=== PATIENT | female | born 1930 | race Caucasian/White ===

== ENCOUNTER 2016-04-30 17:08 | Emergency (ER) | payer MEDICARE ==
[~2016-04-30 17:08] MED LIST: Sodium Chloride 0.9% 1,000 ML BAG ONE
[2016-04-30 18:03] LABS: #Basophils 0.1 thou/uL (0.0-0.2); #Eosinphils 0.7 thou/uL (0.0-0.7); #Lymphocytes 2.6 thou/uL (1.20-3.40); #Neutrophils 6.4 thou/uL (1.40-6.50); %Basophils 0.7 % (0.0-1.0); %Eosinophils 6.8 % (0.0-10.0); %Monocytes 8.9 % (0.0-10.0); %Neutrophils 59.6 % (42.0-75.0); Hemoglobin 13.6 g/dL (12.0-16.0); Mean Corpuscular HGB CONC 31.5 g/dL (32.0-36.0); Mean Corpuscular Hemoglobin 25.5 pg (27.0-31.0); Mean Corpuscular Volume 80.9 fl (81.0-99.0); Mean Platelet Volume 6.5 fL (7.4-10.4); Platelet Count 276 thou/uL (130-400); RBC Distribution Width 16.6 % (11.5-14.5); Red Blood Cell (RBC) Count 5.32 mill/uL (4.20-5.40); White Blood Cell (WBC) Count 10.7 thou/uL (4.8-10.8)
[2016-04-30 18:11] LABS: ALT (SGPT) 13 U/L (0-55); AST (SGOT) 14 U/L (5-34); Albumin 3.1 g/dL (3.4-4.8); Alkaline Phosphatase 115 U/L (40-150); Anion Gap 16 mmol/L (10-20); BUN (Urea Nitrogen) 38 mg/dL (9.8-20.1); Bilirubin, Total Less than 0.3 mg/dL (0.2-1.2); Calc. Creatinine Clearance 0 mL/min (70-130); Calcium 9.4 mg/dL (7.8-10.44); Carbon Dioxide 22 mmol/L (23-31); Chloride 107 mmol/L (98-107); Estimated GFR-MDRD 38; Globulin 3.2 g/dL (2.4-3.5); Glucose 109 mg/dL (83-110); Potassium 4.7 mmol/L (3.5-5.1); Protein, Total 6.3 g/dL (5.8-8.1); Sodium 140 mmol/L (136-145)
[2016-04-30 18:15] LABS: CKMB 3.1 ng/mL (0-6.6); Troponin I Less than 0.010 ng/mL (< 0.028)
== END 2016-04-30 20:15 ==
LOC: MADERS 17:08
DX: R55 Syncope and collapse (principal); F03.90 Unspecified dementia, unspecified severity, without behavioral disturbance, psychotic disturbance, mood disturbance, and anxiety; I10 Essential (primary) hypertension; G40.909 Epilepsy, unspecified, not intractable, without status epilepticus; Z79.82 Long term (current) use of aspirin; Z79.899 Other long term (current) drug therapy
CPT/HCPCS: 36415; 36416; 80053; 82553; 84484; 85025; 93005; 96360; 96361; J7050

== ENCOUNTER 2016-06-08 03:06 | Emergency (ER) | payer MEDICARE ==
[2016-06-08] MEDS ORDERED: Adacel (T-DAP) 0.5 ML VIAL ONE (04:08)
[2016-06-08 04:12] LABS: #Eosinphils 0.6 thou/uL (0.0-0.7); #Lymphocytes 1.6 thou/uL (1.20-3.40); #Monocytes 0.6 thou/uL (0.11-0.59); #Neutrophils 5.2 thou/uL (1.40-6.50); %Basophils 0.6 % (0.0-1.0); %Eosinophils 7.7 % (0.0-10.0); %Lymphocytes 19.9 % (21.0-51.0); %Monocytes 7.1 % (0.0-10.0); %Neutrophils 64.7 % (42.0-75.0); Hemoglobin 12.5 g/dL (12.0-16.0); Mean Corpuscular HGB CONC 31.7 g/dL (32.0-36.0); Mean Corpuscular Volume 82.1 fl (81.0-99.0); Mean Platelet Volume 6.2 fL (7.4-10.4); Platelet Count 211 thou/uL (130-400); RBC Distribution Width 15.6 % (11.5-14.5); Red Blood Cell (RBC) Count 4.82 mill/uL (4.20-5.40)
[2016-06-08 04:23] LABS: ALT (SGPT) 22 U/L (0-55); AST (SGOT) 17 U/L (5-34); Albumin 2.7 g/dL (3.4-4.8); Alkaline Phosphatase 139 U/L (40-150); Anion Gap 12 mmol/L (10-20); BUN (Urea Nitrogen) 35 mg/dL (9.8-20.1); Bilirubin, Total 0.3 mg/dL (0.2-1.2); Calc. Creatinine Clearance 0 mL/min (70-130); Carbon Dioxide 22 mmol/L (23-31); Chloride 112 mmol/L (98-107); Estimated GFR-MDRD 40; Glucose 192 mg/dL (83-110); Potassium 4.2 mmol/L (3.5-5.1); Protein, Total 5.7 g/dL (5.8-8.1); Sodium 142 mmol/L (136-145)
--- NOTE | 2016-06-08 10:30 | CT ---
PRELIMINARY REPORT/[facility]/EMERGENCY AFTER HOURS PROCEDURE: Addendum created by Thomas Salinas MD on 06/08/2016 4:08 AM Central Time ([place] \[place]\ [place]) THIS REPORT CONTAINS FINDINGS THAT MAY BE CRITICAL TO PATIENT CARE. The findings were verbally commu nicated via telephone conference with Dr. Jacobo at 4:08 AM CDT on 06/08/2016. The findings were ackn owledged and understood. Initial Report created on 06/08/2016 3:59 AM Central Time ([place]) EXAM: CT Head Without Intravenous Contrast CLINICAL HISTORY: 85 years old, female; Injury or trauma; Fall TECHNIQUE: Axial computed tomography images of the head/brain without intravenous contrast. Coronal reformatted images were created and reviewed. COMPARISON: No relevant prior studies available. FINDINGS: Brain: Age appropriate atrophy and small vessel ischemic change. There is a small subdural hemorrhag e along the tip of the right frontal lobe which measures up to 4.5 mm. No mass effect, midline shift . Parnell-white matter differentiation is normal. 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 Ventricles: Unremarkable. No ventriculomegaly. Bones/joints: Unremarkable. No acute fracture. Soft tissues: There is posterior scalp swelling and laceration. Sinuses: Mucosal thickening in the ethmoid sinuses. Mastoid air cells: Unremarkable as visualized. No mastoid effusion. IMPRESSION: Small subdural hemorrhage along the tip of the right frontal lobe. Thank you for allowing us to participate in the care of your patient. Dictated and Authenticated by: Thomas Salinas MD 06/08/2016 3:59 AM Central Time ([place] \[place]\ [place]) FINAL REPORT CT BRAIN WITHOUT CONTRAST: Date: 06/08/16 INDICATION: Fall. IMPRESSION: I agree with the preliminary report provided by [facility]. There is a small subdural hematoma overlying the anterior aspect of the right frontal lobe measuring 3.0 mm in its greatest axial dimension on image 11 of series 2. POS: [facility]
== END 2016-06-08 04:45 | disposition short-term general hospital (02) ==
LOC: MADERS 03:06
DX: S01.01XA Laceration without foreign body of scalp, initial encounter (principal); S06.5X0A Traumatic subdural hemorrhage without loss of consciousness, initial encounter; F03.90 Unspecified dementia, unspecified severity, without behavioral disturbance, psychotic disturbance, mood disturbance, and anxiety; I10 Essential (primary) hypertension; G40.909 Epilepsy, unspecified, not intractable, without status epilepticus; Z79.82 Long term (current) use of aspirin; Z79.899 Other long term (current) drug therapy; W22.8XXA Striking against or struck by other objects, initial encounter
CPT/HCPCS: 12001; 36415; 70450; 80053; 85025; 90471; 90715

== ENCOUNTER 2016-06-25 09:10 | Outpatient (CLI) | payer MEDICARE ==
--- NOTE | 2016-06-25 10:09 | CT ---
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 3D measurements are approximately 1.4 x 1.4 x 11.8 cm. This subdural collection has developed since the previous CT from approximately 17 days earlier. There is some midline shift with approximately 5 mm shift of the midline from left to right. No definite evidence of acute hemor rhage is seen. There is an old area of left parietal strokes seen. IMPRESSION: Interval development of a chronic subdural left sided hematoma with midline shift. POS: [facility]
== END 2016-06-25 09:11 | disposition home or self-care (01) ==
LOC: MADCT 09:10
PROVIDERS: ATTEND Neurological Surgery
DX: S06.5X0A Traumatic subdural hemorrhage without loss of consciousness, initial encounter (principal)
CPT/HCPCS: 70450

== ENCOUNTER 2016-07-05 10:33 | Outpatient (CLI) | payer MEDICARE ==
--- NOTE | 2016-07-05 14:03 | CT ---
CT BRAIN NONCONTRAST: DATE: 07-05-16 HISTORY: Follow up left subdural hematoma in 85-year-old female. The finding of acute component of the subdural hematoma was conveyed in a text measure to Dr. Larry hood at 11:35 a.m. on 07-05-16. He answered acknowledgement in return text messages. COMPARISON: 06-25-16 FINDINGS: The left frontoparietal subdural hematoma is again demonstrated. Most of it is only slightly higher in attenuation compared to CSF (late subacute blood). There are new small foci of hyperdense, acute blood in the upper posterior aspects of this subdural hematoma (axial image 21 , series 2 and 1 , series 2). The transverse diameter of the subdural hematoma is approximately 15 mm, and it compresses the left cerebral hemisphere, causing a mild, approximately 5 mm left to right midline shift of the septum pe llucidum. The degree of midline of shift has not significantly changed. The left lateral ventricle i s minimally extrinsically compressed. There is no obstructive hydrocephalus. Again noted is the small region of encephalomalacia and gliosis at the left occipital lobe. There is no acute calvarial fracture. IMPRESSION: 1. Interval development of acute component of subdural hemorrhage within the subacute left subdural hematoma. 2. The size of the left subdural hematoma is minimally larger than it was on 06-25-16, but the degree of midline shift is unchanged. 3. Small region of encephalomalacia and gliosis in the left occipital lobe, probably an old infarcti on. Code CHLOE JN R POS: [facility]
== END 2016-07-05 10:34 | disposition home or self-care (01) ==
LOC: MADCT 10:33
PROVIDERS: ATTEND Neurological Surgery
DX: S06.5X0A Traumatic subdural hemorrhage without loss of consciousness, initial encounter (principal)
CPT/HCPCS: 70450

== ENCOUNTER 2016-07-25 18:21 | Emergency (ER) | payer MEDICARE ==
--- NOTE | 2016-07-25 23:13 | RAD ---
LEFT WRIST THREE VIEWS HISTORY: An 85-year-old female with left wrist pain following a fall two days ago. FINDINGS: Bony demineralization with generalized degenerative changes. Prominent chondrocalcinosis with some periarticular ossification in the region of the wrist. IMPRESSION: 1. Fairly extensive chondrocalcinosis with some articular and periarticular ossification changes. 2. No evidence for an overt acute fracture or dislocation. 3. Bone demineralization and degenerative changes. Given the prominent chondrocalcinosis overlying the navicular bone, if the patient is tender over th e navicular bone or at the level of the anatomic snuffbox and scapular injury is considered a possib ility, clinically, a follow-up CT scan should be considered, to rule out that possibility. POS: [facility]
== END 2016-07-25 20:20 | disposition home or self-care (01) ==
LOC: MADERS 18:21
DX: M25.532 Pain in left wrist (principal); F03.90 Unspecified dementia, unspecified severity, without behavioral disturbance, psychotic disturbance, mood disturbance, and anxiety; I10 Essential (primary) hypertension; G40.909 Epilepsy, unspecified, not intractable, without status epilepticus; Z79.899 Other long term (current) drug therapy
CPT/HCPCS: 29125

== ENCOUNTER 2016-08-07 11:44 | Outpatient (CLI) | payer MEDICARE ==
--- NOTE | 2016-08-07 15:58 | CT ---
CT HEAD WITHOUT IV CONTRAST 08/07/16 HISTORY: Followup subdural hematoma. COMPARISON: 07/05/16. The left frontoparietal subdural hematoma is again seen and is slightly smaller in size compared to the prior exam. There is similar attenuation of the subdural hemorrhage. Again noted is mild mass ef fect on the left cerebral hemisphere. Greatest transverse dimension on today's exam is 13 mm and on the prior study was 15 mm. There is approximately 2 mm of shift of the midline structures to the rig ht. There is no hydrocephalus present. Mild cerebral volume loss and chronic small vessel ischemic changes are again present with remote ar ea of infarction again seen within the left occipital lobe. No new intraparenchymal or extra-axial h emorrhage is seen. No other interval change. IMPRESSION: Slight interval decrease in size of the left subdural hematoma with persistent mass effect in the le ft cerebral hemisphere and slight shift of the midline structures to the right measuring 2 mm. POS: [facility]
== END 2016-08-07 11:45 | disposition home or self-care (01) ==
LOC: MADCT 11:44
PROVIDERS: ATTEND Neurological Surgery
DX: S06.5X0A Traumatic subdural hemorrhage without loss of consciousness, initial encounter (principal)
CPT/HCPCS: 70450

== ENCOUNTER 2016-09-24 14:18 | Outpatient (CLI) | payer MEDICARE ==
[2016-09-24 14:58] LABS: Anion Gap 14 mmol/L (10-20); BUN (Urea Nitrogen) 17 mg/dL (9.8-20.1); Calc. Creatinine Clearance 0 mL/min (70-130); Calcium 9.6 mg/dL (7.8-10.44); Carbon Dioxide 25 mmol/L (23-31); Chloride 106 mmol/L (98-107); Estimated GFR-MDRD 42; Glucose 206 mg/dL (83-110); Potassium 4.5 mmol/L (3.5-5.1); Sodium 140 mmol/L (136-145)
[2016-09-24 15:09] LABS: Hemoglobin 14.5 g/dL (12.0-16.0)
== END 2016-09-24 14:19 | disposition home or self-care (01) ==
LOC: MADLAB 14:18
PROVIDERS: ATTEND Ophthalmology
DX: Z01.818 Encounter for other preprocedural examination (principal); H25.11 Age-related nuclear cataract, right eye
CPT/HCPCS: 36415; 80048; 85014; 85018

== ENCOUNTER 2016-10-04 19:31 | Emergency (ER) | payer MEDICARE ==
[~2016-10-04 19:31] MED LIST changes: +Sodium Chloride 0.9% 100 ML BAG ONE
[2016-10-04] MEDS ORDERED: Ondansetron HCl/PF 4 MG/2 ML Vial ONE (20:21)
[2016-10-04 20:45] LABS: ALT (SGPT) 17 U/L (8-55); AST (SGOT) 21 U/L (5-34); Alkaline Phosphatase 149 U/L (40-150); Anion Gap 17 mmol/L (10-20); BUN (Urea Nitrogen) 31 mg/dL (9.8-20.1); Bilirubin, Total Less than 0.3 mg/dL (0.2-1.2); Calc. Creatinine Clearance 0 mL/min (70-130); Carbon Dioxide 21 mmol/L (23-31); Chloride 103 mmol/L (98-107); Estimated GFR-MDRD 39; Globulin 4.1 g/dL (2.4-3.5); Glucose 194 mg/dL (83-110); Lipase 65 U/L (8-78); Magnesium 2.1 mg/dL (1.6-2.6); Protein, Total 7.1 g/dL (6.0-8.3); Sodium 136 mmol/L (136-145)
[2016-10-04 20:59] LABS: CKMB 3.2 ng/mL (0-6.6); Troponin I Less than 0.010 ng/mL (< 0.028)
[2016-10-04 21:11] LABS: Hemoglobin 14.3 g/dL (12.0-16.0); Mean Corpuscular HGB CONC 31.4 g/dL (32.0-36.0); Mean Corpuscular Hemoglobin 27.4 pg (27.0-31.0); Mean Corpuscular Volume 87.4 fl (81.0-99.0); Mean Platelet Volume 6.4 fL (7.4-10.4); Platelet Count 311 thou/uL (130-400); RBC Distribution Width 13.6 % (11.5-14.5); Red Blood Cell (RBC) Count 5.22 mill/uL (4.20-5.40); White Blood Cell (WBC) Count 13.1 thou/uL (4.8-10.8)
[2016-10-04 21:14] LABS: Band 4 % (5-11); Lymphocytes 23 % (21-51); MDiff Complete? YES; Neutrophil 65 % (42-75)
[2016-10-04 21:15] LABS: Eosinophils 3 % (0-10); Monocytes 6 % (0-10)
[2016-10-04 21:30] LABS: Clarity Clear (Clear)
[2016-10-04 21:31] LABS: Bacteria/HPF 1+ HPF (None Seen); Bilirubin Negative (Negative); Blood, Urine Trace (Negative); Glucose, Urine (Dipstick) Negative (Negative); Leukocyte Small (Negative); Nitrite Negative (Negative); Protein, Urine (Dipstick) Negative (Neg-Trace); Renal Epithelial 0-3 HPF (0-3); Specific Gravity, Urine 1.005 (1.005-1.030); Squamous Epithelial 0-3 HPF (0-3); Transitional Epithelial 0-3 HPF (0-3); Urobilinogen 0.2 mg/dL (0.2-1.0)
[2016-10-04] MEDS ORDERED: Piperacillin/Tazobactam 3.375 GM VIAL ONE (22:01)
--- NOTE | 2016-10-04 22:18 | CT ---
CT OF ABDOMEN AND PELVIS 10/04/16 COMPARISON: None. HISTORY: Nausea and vomiting. TECHNIQUE: Serial axial CT imaging at 5 mm intervals from lung bases through pubic symphysis without contrast. Coronal reformatted imaging obtained. FINDINGS: A moderate in completely imaged hiatal hernia is present. Lack of contrast limits assessment of the viscera, bowel, vascular structures and for lymphadenopathy. Linear density in both lung bases sugge sts scar and/or volume loss. No free intraperitoneal air or fluid is evident. The liver, spleen, and gallbladder appear grossly unremarkable. The adrenal glands and the kidneys appear grossly unremark able. There is extensive diverticulosis throughout the colon, most prominent in the region of the sigmoid colon. Appendix appears unremarkable. No evidence for bowel obstruction is seen. There is prominent scoliosis of the lumbar spine, apex to the left at the level of the thoracolumbar junction. There ar e prominent associated degenerative changes involving the spine with multilevel facet hypertrophy as well as multilevel disc space narrowing and degenerative end plate change. There is atherosclerotic calcification of the abdominal aorta and its branches, most prominent in th e pelvis, most prominent in the pelvis and distal abdominal aortic region. There is a focal area of aneurysmal dilatation of the infrarenal abdominal aorta on coronal image 52 measuring 3 cm in transverse dimension. Diffuse ectasia of the lower thoracic and upper abdominal a shefali noted as well. IMPRESSION: 1. No evidence for small bowel obstruction or free intraperitoneal air. 2. Numerous incidental findings, including prominent hiatal hernia. Mild abdominal aortic aneur ysm, and extensive colonic diverticulosis. POS: [facility]
== END 2016-10-04 23:32 | disposition short-term general hospital (02) ==
LOC: MADERS 19:31
DX: N39.0 Urinary tract infection, site not specified (principal); A41.9 Sepsis, unspecified organism; I47.1 Supraventricular tachycardia; I10 Essential (primary) hypertension; F03.90 Unspecified dementia, unspecified severity, without behavioral disturbance, psychotic disturbance, mood disturbance, and anxiety; G40.909 Epilepsy, unspecified, not intractable, without status epilepticus
CPT/HCPCS: 36415; 51701; 74176; 80053; 81001; 82553; 83605; 83690; 83735; 84484; 85025; 87040; 87077; 87086; 87186; 93005; 96361; 96365; 96375; A4353; J2405; J2543; J7050

== ENCOUNTER 2016-10-28 22:38 | Emergency (ER) | payer MEDICARE | END 2016-10-28 23:59 | disposition left against medical advice (07) | LOC: MADERS 22:38 | DX: Z53.21 Procedure and treatment not carried out due to patient leaving prior to being seen by health care provider (principal) ==

== ENCOUNTER 2017-05-26 12:56 | Emergency (ER) | payer MEDICARE ==
[2017-05-26] MEDS ORDERED: Ondansetron HCl/PF 4 MG/2 ML Vial ONE (13:31)
[2017-05-26] MEDS ORDERED: Ondansetron ODT 4 MG TAB ONE (13:32)
[2017-05-26 13:57] LABS: #Basophils 0.1 thou/uL (0.0-0.2); #Eosinphils 0.2 thou/uL (0.0-0.7); #Lymphocytes 0.9 thou/uL (1.20-3.40); #Neutrophils 11.2 thou/uL (1.40-6.50); %Basophils 0.6 % (0.0-1.0); %Eosinophils 1.4 % (0.0-10.0); %Lymphocytes 6.6 % (21.0-51.0); %Monocytes 7.3 % (0.0-10.0); %Neutrophils 84.1 % (42.0-75.0); Hemoglobin 8.9 g/dL (12.0-16.0); Hypochromia MODERATE=16-30 cells (100X) (0-5/hpf); MDiff Complete? YES; Mean Corpuscular HGB CONC 28.5 g/dL (32.0-36.0); Mean Corpuscular Hemoglobin 18.6 pg (27.0-31.0); Mean Corpuscular Volume 65.1 fl (81.0-99.0); Mean Platelet Volume 6.4 fL (7.4-10.4); Microcytosis MODERATE=15-30 cells (100X) (0-5/hpf); PLT Morphology Comment Appears Adequate; Platelet Count 376 thou/uL (130-400); RBC Distribution Width 16.2 % (11.5-14.5); Red Blood Cell (RBC) Count 4.82 mill/uL (4.20-5.40); White Blood Cell (WBC) Count 13.3 thou/uL (4.8-10.8)
[2017-05-26 13:58] LABS: ALT (SGPT) 12 U/L (8-55); AST (SGOT) 12 U/L (5-34); Albumin 3.1 g/dL (3.4-4.8); Alkaline Phosphatase 125 U/L (40-150); Anion Gap 14 mmol/L (10-20); BUN (Urea Nitrogen) 30 mg/dL (9.8-20.1); Bilirubin, Total 0.4 mg/dL (0.2-1.2); Calc. Creatinine Clearance 0 mL/min (70-130); Calcium 8.6 mg/dL (7.8-10.44); Carbon Dioxide 25 mmol/L (23-31); Chloride 106 mmol/L (98-107); Estimated GFR-MDRD 33; Globulin 3.4 g/dL (2.4-3.5); Glucose 222 mg/dL (83-110); Lipase 48 U/L (8-78); Potassium 4.7 mmol/L (3.5-5.1); Protein, Total 6.5 g/dL (6.0-8.3); Sodium 140 mmol/L (136-145)
[2017-05-26 14:42] LABS: Bilirubin Negative (Negative); Blood, Urine Negative (Negative); Clarity Clear (Clear); Glucose, Urine (Dipstick) Negative (Negative); Leukocyte Negative (Negative); Nitrite Negative (Negative); Protein, Urine (Dipstick) Negative (Neg-Trace); Specific Gravity, Urine 1.015 (1.005-1.030); Urobilinogen 0.2 mg/dL (0.2-1.0)
--- NOTE | 2017-05-26 14:54 | RAD ---
CHEST ONE VIEW: ABDOMEN TWO VIEWS: HISTORY: Chest and abdomen pain. FINDINGS: The cardiac silhouette and pulmonary vasculature are unremarkable. The mediastinum is midline with a ortic calcification. There is no lobar consolidation or evidence of free subdiaphragmatic gas. Gas and stool are apparent within the colon and rectum. No differential air-fluid levels. Phleboliths p roject over the pelvis. Degenerative changes of the lumbar spine and hips. IMPRESSION: 1. Nonspecific bowel gas pattern. 2. Atherosclerosis. POS: [facility]
== END 2017-05-26 15:33 | disposition home or self-care (01) ==
LOC: MADERS 12:56
DX: D50.0 Iron deficiency anemia secondary to blood loss (chronic) (principal); F03.90 Unspecified dementia, unspecified severity, without behavioral disturbance, psychotic disturbance, mood disturbance, and anxiety; I10 Essential (primary) hypertension; Z79.899 Other long term (current) drug therapy
CPT/HCPCS: 36415; 74022; 80053; 81003; 82274; 83690; 85025; A4353; J2405; Q0162

== ENCOUNTER 2017-06-13 11:33 | Outpatient (CLI) | payer MEDICARE ==
[2017-06-13 12:20] LABS: Hemoglobin 10.7 g/dL (12.0-16.0); Mean Corpuscular HGB CONC 29.8 g/dL (32.0-36.0); Mean Corpuscular Hemoglobin 19.6 pg (27.0-31.0); Mean Corpuscular Volume 65.9 fl (81.0-99.0); Mean Platelet Volume 5.7 fL (7.4-10.4); Platelet Count 344 thou/uL (130-400); RBC Distribution Width 24.6 % (11.5-14.5); Red Blood Cell (RBC) Count 5.44 mill/uL (4.20-5.40); White Blood Cell (WBC) Count 6.1 thou/uL (4.8-10.8)
== END 2017-06-13 11:34 | disposition home or self-care (01) ==
LOC: MADLAB 11:33
PROVIDERS: ATTEND Internal Medicine Gastroenterology
DX: R10.13 Epigastric pain (principal)
CPT/HCPCS: 36415; 85027

== ENCOUNTER 2018-04-29 15:19 | Emergency (ER) | payer MEDICARE ==
--- NOTE | 2018-04-29 16:05 | RAD ---
PA AND LATERAL CHEST: HISTORY: Cough. FINDINGS: Heart size is within normal limits. There are atherosclerotic changes of the aorta. The lungs do no t show any infiltrative process. A hiatal hernia is demonstrated. There are arthritic changes of th e spine and scoliosis. IMPRESSION: 1. Borderline heart size. 2. Hiatal hernia. 3. No active intrathoracic disease. POS: [facility]
== END 2018-04-29 16:27 | disposition home or self-care (01) ==
LOC: MADERS 15:19
DX: J20.9 Acute bronchitis, unspecified (principal); G30.9 Alzheimer's disease, unspecified; F02.80 Dementia in other diseases classified elsewhere, unspecified severity, without behavioral disturbance, psychotic disturbance, mood disturbance, and anxiety; I10 Essential (primary) hypertension; G40.909 Epilepsy, unspecified, not intractable, without status epilepticus; Z79.899 Other long term (current) drug therapy
CPT/HCPCS: 71046; 87804